=== PATIENT | female | born 1970 | race Caucasian/White ===

== ENCOUNTER 2017-01-05 02:07 | Emergency (ER) | payer BC ==
[~2017-01-05] VITALS: Ht 162.6 cm; Wt 60.1 kg
[2017-01-05] MEDS ORDERED: KETOROLAC 30 MG/1 ML IVPush ONE (03:30)
[2017-01-05] MEDS ORDERED: PROMETHAZINE 25 MG/ML, 1ML IM ONE (03:30)
[2017-01-05] MEDS ORDERED: PROMETHAZINE 25 MG/ML, 1ML ONE (03:42)
[2017-01-05] MEDS ORDERED: KETOROLAC 30 MG/1 ML ONE (03:42)
[2017-01-05] MEDS ORDERED: KETOROLAC 30 MG/1 ML IM ONE (04:00)
[2017-01-05 04:18] VITALS: BP 99/57
== END 2017-01-05 04:18 | disposition home or self-care (01) ==
LOC: ED 04:07
DX: B34.9 Viral infection, unspecified (principal); M79.1 Myalgia; R19.7 Diarrhea, unspecified; R11.2 Nausea with vomiting, unspecified
CPT/HCPCS: 96372; 99283; J1885